=== PATIENT | female | born 1990 | race Caucasian/White ===

== ENCOUNTER 2016-05-25 15:19 | Inpatient (IN) | payer BC ==
[2016-05-25] MEDS ORDERED: CARBOPROST TROMETHAMINE 250 MCG/ML 1 ML AMP IM PRN (17:43)
[2016-05-25] MEDS ORDERED: LIDOCAINE 1% (PF) 10 MG/ML (30 ML SDV) SQ PRN (17:43)
[2016-05-25] MEDS ORDERED: OXYTOCIN 10 UNIT/ML 1 ML VIAL IM PRN (17:43)
[2016-05-25] MEDS ORDERED: METHYLERGONOVINE 0.2 MG/ML 1 ML AMP IM PRN (17:43)
[2016-05-25] MEDS ORDERED: TERBUTALINE 1 MG/ML VIAL SQ PRN (17:43)
[2016-05-25 17:54] LABS: Anisocytosis Slight; Basophils # (A) 0.1 k/uL (0-0.2); Basophils % (A) 1 %; CH 24.6; CHCM 30.9; Eosinophils # (A) 0.1 k/uL (0-0.7); Eosinophils % (A) 1 %; HCT 38.8 % (34.0-46.0); HDW 3.04; Hypochromasia Moderate; Luc # (Auto) 0.33; Luc % (Auto) 3; Lymphocytes # (A) 1.8 k/uL (1.0-4.8); Lymphocytes % (A) 14 %; MCH 24.6 pg (25.0-35.0); MCHC 30.8 g/dL (31.0-37.0); MCV 79.9 fL (80.0-100.0); Mean Platelet Volume 7.1; Microcytosis Slight; Monocytes # (A) 0.6 k/uL (0-1.0); Monocytes % (A) 4 %; Neutrophils # (A) 10.2 k/uL (1.3-7.7); Neutrophils % (A) 78 %; RBC 4.86 m/uL (3.80-5.40); RDW 19.2 % (11.5-15.5); WBC (Perox) 13.62
[2016-05-25] MEDS: LACTATED RINGERS 1,000 ML IV SCH ×2 (17:56→18:33)
[2016-05-25 18:24] VITALS: BMI 32.5
--- NOTE | 2016-05-25 18:29 | P.HPOB ---
History of Present Illness H&P Date: 05/25/16 This is a 25-year-old white female 2 para 1001 EDC 06/12/2016 at 37-3/7 weeks' gestation. Patient presented to labor and delivery having recently had intercourse, and now with regular uterine contractions. She states fetus is been active throughout the . She denies vaginal bleeding or fluid leakage. Past medical history is significant for kidney stones, PIH in her previous in 2015. Past surgical history is negative. Current medications vitamins and iron supplement daily. ALLERGIES none known. Social history is negative for tobacco, alcohol or drug use. Patient is , she and her make their home in [place], [place]. history: Patient states she is Rh+, group B strep cultures are here and negative. The remaining labs are not available as the history and physical from the office are not present. On exam this is a pleasant white female, 5 foot 5 inches, 198 pounds, admission blood pressure 137/90 with a pulse of 108. The general physical exam is within normal limits. The extremities reveal no edema. The cervix is 6 cm dilated, very posterior, vertex presentation, 60% effaced. Patient states she was 3 cm her examination in the office yesterday. Artificial amniorrhexis reveals clear fluid. heart rate is in the 140s with frequent accelerations consistent with reactive NST. Impression: 37-3/7 weeks intrauterine , early labor. Patient is requesting epidural. Plan: Close maternal and surveillance. Epidural may be placed per patient 's wishes. Anticipate normal spontaneous vaginal delivery. Review of Systems Negative except as in HPI. I Past Medical History Past Medical History: No Reported History Additional Past Medical History / Comment(s): Kidney stones History of Any Multi-Drug Resistant Organisms: None Reported Past Surgical History: No Surgical Hx Reported Past Anesthesia/Blood Transfusion Reactions: No Reported Reaction Past Psychological History: No Psychological Hx Reported Smoking Status: Never smoker Past Drug Use History: None Reported - Past Family History Mother Family Medical History: No Reported History Medications and Allergies Home Medications Medication Instructions Recorded Confirmed Type Acetaminophen Tab [Tylenol] 1 tab PO DAILY 04/02/16 04/02/16 History Ferrous Sulfate [Feosol] 325 mg PO DAILY 05/25/16 05/25/16 History Pnv with Ca,No.72/Iron/FA 1 tab PO DAILY 05/25/16 05/25/16 History [ Plus Tablet] Allergies Allergy/AdvReac Type Severity Reaction Status Date / Time No Known Allergies Allergy Verified 04/02/16 10:26 Exam - Vital Signs Vital signs: Vital Signs Temp Pulse Resp BP 05/25/16 17:26 97.6 F 108 H 16 137/90 Intake and Output 05/25/16 05/25/16 05/25/16 06:59 14:59 22:59 Other: Weight 88.904 kg Patient Weight 05/26/16 06:59 Weight 88.904 kg See dictation, please Results Result Diagrams: 05/25/16 17:40 Abnormal Lab Results - Last 24 Hours (Table) 05/25/16 Range/Units 17:40 WBC 13.0 H (3.8-10.6) k/uL MCV 79.9 L (80.0-100.0) fL MCH 24.6 L (25.0-35.0) pg MCHC 30.8 L (31.0-37.0) g/dL RDW 19.2 H (11.5-15.5) % Neutrophils # 10.2 H (1.3-7.7) k/uL Assessment and Plan Plan: Close maternal and surveillance. Anticipate normal spontaneous vaginal delivery. Time with Patient: Less than 30
[2016-05-25] MEDS ORDERED: LACTATED RINGERS 1,000 ML IV SCH (18:30)
[2016-05-25] MEDS ORDERED: BUPIVACAINE (PF) 0.25% 30 ML VIAL ONE (18:45)
[2016-05-25] MEDS ORDERED: SODIUM CHLORIDE 0.9% 100 ML BAG ONE (18:45)
[2016-05-25] MEDS ORDERED: fentaNYL (PF) 50 MCG/ML 5 ML AMP ONE (18:45)
[2016-05-25] MEDS ORDERED: BUPIVACAINE (PF) 0.25% 25 ML, fentaNYL (PF) 200 MCG in SODIUM CHLORIDE 0.9% 71 ML EPIDURAL ONE (19:00)
[2016-05-25] MEDS ORDERED: OXYTOCIN 30 UNITS/500 ML NS 30 UNIT in SALINE 1 500ML.BAG IV SCH ×2 (19:15→22:45)
[2016-05-25] MEDS ORDERED: diphenhydrAMINE 25 MG CAP PO PRN (22:35)
[2016-05-25] MEDS ORDERED: WITCH HAZEL 1 EACH MED..PAD TOPICAL PRN (22:35)
[2016-05-25] MEDS ORDERED: ZOLPIDEM 5 MG TAB PO PRN (22:35)
[2016-05-25] MEDS ORDERED: LANOLIN CREAM 5 GM TUBE TOPICAL PRN (22:35)
[2016-05-25] MEDS ORDERED: diphenhydrAMINE 50 MG/ML 1 ML VIAL IVP PRN ×2 (22:35)
[2016-05-25] MEDS ORDERED: SIMETHICONE 80 MG CHEWABLE PO PRN (22:35)
[2016-05-25] MEDS ORDERED: diphenhydrAMINE 50 MG CAP PO PRN (22:35)
[2016-05-25] MEDS ORDERED: HYDROCORTISONE 2.5% RECTAL CREAM 30 GM TUBE RECTAL PRN (22:35)
[2016-05-25] MEDS ORDERED: ACETAMINOPHEN TAB 325 MG TAB PO PRN (22:35)
[2016-05-25] MEDS ORDERED: BENZOCAINE/MENTHOL SPRAY 1 GM/SPRAY AEROSOL TOPICAL PRN (22:35)
--- NOTE | 2016-05-25 22:35 | P.PROBDLV ---
Vaginal Delivery Note - . Vaginal Delivery Note: This is a 25-year-old 2 para 1001 EDC 06/12/2016 at 37-3/7 weeks' gestation. Patient presented with strong regular uterine contractions, in early spontaneous labor. Fetus is been active throughout the . Group B strep cultures negative. Please see my admitting H&P for details. Blood type A positive. Artificial amniorrhexis revealed clear fluid. She requested and received an epidural. Oxytocin augmentation was given. heart rate was reassuring throughout the first and second stage of labor. She became completely dilated at 2210 hours and began the second stage of labor at that time. Perineal body was prepped and draped in usual sterile fashion. Infant's head delivered occiput anterior and he restituted accordingly. There was no nuchal cord noted. The left or anterior shoulder was gently delivered from underneath the pubic symphysis at which time the oropharynx, nasopharynx and external nares were all bulb suctioned on the perineal body. Patient was officially delivered of a liveborn male infant at 2218 hours. Umbilical cord was doubly clamped and ligated, he was handed to waiting nurses for evaluation where scores of 9 and 9 at one and 5 minutes respectively were given. The placenta delivered spontaneously, it was inspected and noted to be intact with trivascular cord at 2220 hours. At this time the perineal body was redraped. Inspection of the cervix, vagina, perineum, perirectal, and periurethral areas revealed a small first-degree midline laceration at 6:00. This was repaired in the usual fashion using 3-0 Vicryl suture. Fundus is firm and in the midline, symmetric and 18 week size upon completion of delivery. All sponge needle and enhancement counts are correct. Patient is requesting circumcision for her infant son. 's weight 7 lbs. 15 oz.
[2016-05-25] MEDS: IBUPROFEN 600 MG TAB PO PRN (22:46)
[2016-05-26 03:22] LABS: Glucose,Whole Blood 118 mg/dL (75-99)
[2016-05-26 04:00] LABS: Anisocytosis Slight; Basophils # (A) 0.1 k/uL (0-0.2); Basophils % (A) 1 %; CH 24.8; CHCM 31.6; Eosinophils % (A) 0 %; HCT 34.1 % (34.0-46.0); HGB 10.4 gm/dL (11.4-16.0); Hypochromasia Slight; Luc # (Auto) 0.29; Luc % (Auto) 2; Lymphocytes # (A) 1.8 k/uL (1.0-4.8); Lymphocytes % (A) 12 %; MCH 24.1 pg (25.0-35.0); MCHC 30.6 g/dL (31.0-37.0); Mean Platelet Volume 7.8; Microcytosis Slight; Monocytes # (A) 0.8 k/uL (0-1.0); Monocytes % (A) 5 %; Neutrophils # (A) 11.8 k/uL (1.3-7.7); Neutrophils % (A) 80 %; RBC 4.31 m/uL (3.80-5.40); RDW 19.2 % (11.5-15.5); WBC 14.7 k/uL (3.8-10.6); WBC (Perox) 14.39
[2016-05-26 04:30] LABS: Amorphous Sediment,Urine Rare /hpf; Appearance,Urine Cloudy (Clear); Bilirubin,Urine Negative (Negative); Glucose,Urine (UA) Negative (Negative); Ketones,Urine Negative (Negative); Leukocyte Esterase,Urine Small (Negative); Mucus,Urine Rare /hpf; Nitrite,Urine Negative (Negative); PH, Urine 7.5 (5.0-8.0); Particle Count 13616; Protein,Urine Negative (Negative); RBC,Urine 52 /hpf (0-5); Specific Gravity,Urine 1.007 (1.001-1.035); Squamous Epithelial Cell,Urine 2 /hpf (0-4); UA Billing (MACRO vs. MICRO) MICRO; Urobilinogen,Urine <2.0 mg/dL (<2.0); WBC,Urine 15 /hpf (0-5)
--- NOTE | 2016-05-26 04:36 | XR ---
EXAMINATION TYPE: XR chest 2V DATE OF EXAM: 05/26/2016 4:26 AM COMPARISON: 05/26/2016 HISTORY: Shortness of breath, tightness. TECHNIQUE: Frontal and lateral views of the chest are obtained. FINDINGS: There is no focal air space opacity, pleural effusion, or pneumothorax seen. The cardiac silhouette size is within normal limits. The osseous structures are intact. IMPRESSION: No acute cardiopulmonary process.
[2016-05-26] MEDS: LACTATED RINGERS 1,000 ML IV SCH ×2 (04:42→07:28)
[2016-05-26] MEDS: IBUPROFEN 600 MG TAB PO PRN ×2 (08:15→20:46)
[2016-05-26] MEDS: SENNOSIDES-DOCUSATE SODIUM 1 EACH TAB PO SCH ×2 (08:15→20:51)
--- NOTE | 2016-05-26 10:34 | P.PN ---
Subjective Principal diagnosis: day #1 Objective - Vital Signs Vital signs: Vital Signs Temp 98.2 F 05/26/16 08:00 Pulse 104 H 05/26/16 08:00 Resp 20 05/26/16 08:00 BP 128/84 05/26/16 08:00 Pulse Ox 99 05/26/16 08:00 Intake & Output 05/25/16 05/26/16 05/26/16 18:59 06:59 18:59 Intake Total 803.2 1000 Balance 803.2 1000 Weight 88.904 kg Intake: IV 800 1000 Lactated Ringers 1,000 ml 800 @ 125 mls/hr IV .Q8H [facility] Rx#:[id number] Lactated Ringers 1,000 ml 1000 @ 999 mls/hr IV .Q1H1M [facility]ITA Rx#:[id number] Intake, IV Titration 3.2 Amount Oxytocin 30 Units/500 ml 3.2 Ns 30 unit In Saline 1 500ml.bag @ 1 MILLIUNIT/ MIN 1 mls/hr IV .Q24H [facility]ITA Rx#:[id number] Other: # Voids 1 - Constitutional General appearance: Present: average body habitus, cooperative - EENT Eyes: Present: PERRLA ENT: Present: hearing grossly normal - Neck Neck: Present: normal ROM - Respiratory Respiratory: bilateral: CTA - Cardiovascular Rhythm: regular - Gastrointestinal General gastrointestinal: Present: normal bowel sounds - Integumentary Integumentary: Present: normal, normal turgor - Neurologic Neurologic: Present: CNII-XII intact - Musculoskeletal Musculoskeletal: Present: gait normal - Psychiatric Psychiatric: Present: A&O x's 3, appropriate affect, intact judgment & insight - Labs CBC & Chem 7: 05/26/16 03:52 Labs: Abnormal Lab Results - Last 24 Hours (Table) 05/25/16 05/26/16 05/26/16 Range/Units 17:40 03:20 03:52 WBC 13.0 H 14.7 H (3.8-10.6) k/uL Hgb 10.4 L (11.4-16.0) gm/dL MCV 79.9 L 79.0 L (80.0-100.0) fL MCH 24.6 L 24.1 L (25.0-35.0) pg MCHC 30.8 L 30.6 L (31.0-37.0) g/dL RDW 19.2 H 19.2 H (11.5-15.5) % Neutrophils # 10.2 H 11.8 H (1.3-7.7) k/uL POC Glucose (mg/dL) 118 H (75-99) mg/dL Urine Appearance (Clear) Urine Blood (Negative) Ur Leukocyte Esterase (Negative) Urine RBC (0-5) /hpf Urine WBC (0-5) /hpf Amorphous Sediment (None) /hpf Urine Mucus (None) /hpf 05/26/16 Range/Units 03:57 WBC (3.8-10.6) k/uL Hgb (11.4-16.0) gm/dL MCV (80.0-100.0) fL MCH (25.0-35.0) pg MCHC (31.0-37.0) g/dL RDW (11.5-15.5) % Neutrophils # (1.3-7.7) k/uL POC Glucose (mg/dL) (75-99) mg/dL Urine Appearance Cloudy H (Clear) Urine Blood Large H (Negative) Ur Leukocyte Esterase Small H (Negative) Urine RBC 52 H (0-5) /hpf Urine WBC 15 H (0-5) /hpf Amorphous Sediment Rare H (None) /hpf Urine Mucus Rare H (None) /hpf Assessment and Plan Plan: Continue care today. Circumcision now. Likely discharge home tomorrow. Time with Patient: Less than 30
[2016-05-26] MEDS ORDERED: Acetaminophen-Codeine 300-30mg TAB PO PRN ×2 (12:32→13:10)
[2016-05-26] MEDS: Acetaminophen-Codeine 300-30mg TAB PO PRN (18:54)
[2016-05-27] MEDS: Acetaminophen-Codeine 300-30mg TAB PO PRN (01:23)
[2016-05-27] MEDS: IBUPROFEN 600 MG TAB PO PRN ×2 (04:10→10:23)
[2016-05-27 08:30] VITALS: BP 122/77; PULSE 93; RESP 20; TEMP 97.6
--- NOTE | 2016-05-27 09:31 | P.DS ---
Providers Date of admission: 05/25/16 17:21 Expected date of discharge: 05/27/16 Attending physician: Mario Angel Primary care physician: Stated None Hospital Course: This is a 25-year-old white female 2 para 1001 EDC 3 EDC 717 at 37-3/7 weeks' gestation. Patient presented to labor and delivery with a complaint of strong regular uterine contractions. She was monitored in the triage area were cervical change was noted. She was admitted therefore in early labor. Her was essentially unremarkable with the exception of kidney stones. Group B strep cultures negative. Please see dictated history and physical for details. Artificial amniorrhexis revealed clear fluid. Epidural was placed per her request. Oxytocin augmentation was given. She went on to deliver a liveborn male with scores of 9 and 9 at one and 5 minutes respectively. There was an estimated blood loss recorded of 300 mL's. weighed 7 lbs. 15 oz or 3585g. estimated blood loss was recorded at 300 mL's. Please see dictated delivery note for details. This morning the patient is doing well. She is voiding, ambulating and passing flatus without difficulty. Vital signs are stable and she is afebrile. Fundus is firm and in the midline, symmetric and 18 week size. Extremities are negative for edema. infant is doing well, circumcision has been performed. Patient is judged to be in very good condition for discharge home. She is therefore being discharged in very good condition and will follow-up in the office in 6 weeks. I have reminded her no intercourse, tampons or douching. She will use [id number] ibuprofen products, 200 mg pills, 3 every 6 hours as needed for pain. I reminded her to call with any fevers shakes or chills, foul smelling or copious lochia, with the passage of large blood clots, with any pain not alleviated by [id number] products, or indeed with any concerns. will follow up with social and political studies professor as recommended. Patient Condition at Discharge: Good Plan - Discharge Summary Discharge Medication List Acetaminophen Tab [Tylenol] 1 tab PO DAILY 04/02/16 [History] Ferrous Sulfate [Feosol] 325 mg PO DAILY 05/25/16 [History] Pnv with Ca,No.72/Iron/FA [ Plus Tablet] 1 tab PO DAILY 05/25/16 [ History] Follow up Appointment(s)/Referral(s): Mario Angel MD [STAFF PHYSICIAN] - 6 Weeks Discharge Disposition: HOME SELF-CARE
== END 2016-05-27 12:00 | disposition home or self-care (01) | DRG 775 ==
LOC: FBPOP 15:19 → 4FBP 17:21
PROVIDERS: ADMIT Obstetrics & Gynecology; ATTEND Obstetrics & Gynecology
PROC: 10E0XZZ Delivery of Products of Conception, External Approach (ICD-10-PCS; principal; 2016-05-25)
PROC: 10907ZC Drainage of Amniotic Fluid, Therapeutic from Products of Conception, Via Natural or Artificial Opening (ICD-10-PCS; 2016-05-25)
PROC: 0HQ9XZZ Repair Perineum Skin, External Approach (ICD-10-PCS; 2016-05-25)
PROC: 3E0S3NZ Introduction of Analgesics, Hypnotics, Sedatives into Epidural Space, Percutaneous Approach (ICD-10-PCS; 2016-05-25)
DX: O70.0 First degree perineal laceration during delivery (principal); Z87.442 Personal history of urinary calculi; Z37.0 Single live birth; Z3A.37 37 weeks gestation of pregnancy
CPT/HCPCS: 59025; 71020; 81001; 85025; 86850; 86900; 86901; 88307; 99213